=== PATIENT | female | born 1975 | race Caucasian/White ===

== ENCOUNTER → 2024-05-13 09:00 | Outpatient (REF) | payer BC, SELFPAY | LOC: HWRAD 09:00 | PROVIDERS: ATTENDING PHYSICIAN Internal Medicine Critical Care Medicine; FAMILY PHYSICIAN Physician Assistant Medical | DX: R05.3 Chronic cough (principal); R05.8 Other specified cough | CPT/HCPCS: 71250 ==

== ENCOUNTER 2024-11-05 13:07 | Emergency (ER) | payer BC, SELFPAY ==
[2024-11-05 13:17] VITALS: BP 142/91
[2024-11-05 13:45] LABS: % Basophils 0.2 % (0-2); % Eosinophils 0.4 % (0-6); % Immature Granulocytes 0.5 % (0-0.5); % Lymphocytes 19.1 % (20.5-51.1); % Monocytes 8.2 % (1.7-9.3); % Neutrophils 71.6 % (42.2-75.2); Absolute Eosinophils 0.1 10^3/uL (0-0.7); Absolute Immature Granulocytes 0.1 10^3/uL (0-0.05); Absolute Lymphocytes 2.9 10^3/uL (1.2-3.4); Absolute Monocytes 1.2 10^3/uL (0.1-0.6); Absolute Neutrophils 10.8 10^3/uL (1.4-6.5); Hematocrit 42.6 % (37.0-47.0); Mean Corp Hgb Conc. 32.9 g/dL (33.0-37.0); Mean Corpuscular Hgb 28.7 pg (27.0-31.0); Mean Corpuscular Volume 87.3 fL (81.0-99.0); Mean Platelet Volume 9.2 fL (7.4-10.4); Nucleated Red Blood Cells % 0 %; Platelet Count 331 10^3/uL (130-400); Red Blood Cell Count 4.88 10^6/uL (4.20-5.40); White Blood Cell Count 15.1 10^3/uL (4.8-10.8)
[2024-11-05 13:48] LABS: Urine Albumin 1+ (Neg - Trace); Urine Bilirubin Negative (Negative); Urine Character Clear (Clear); Urine Color Yellow; Urine Glucose Negative (Negative); Urine Ketone 1+ (Negative); Urine Leukocyte Negative (Negative); Urine Nitrite Negative (Negative); Urine Occult Blood 1+ (Negative); Urine Specific Gravity 1.025 (<1.030); Urine Urobilinogen Negative (Neg - 1+)
[2024-11-05 14:01] LABS: ALT (SGPT) 31 U/L (0-35); AST (SGOT) 25 U/L (14-36); Albumin 4.5 g/dl (3.5-5.0); Alkaline Phosphatase 87 U/L (38-126); Blood Urea Nitrogen 12 mg/dl (7-17); Calcium 10.6 mg/dl (8.4-10.2); Carbon Dioxide 27 mmol/L (22-30); Chloride 101 mmol/L (98-107); Glucose 98 mg/dl (70-99); Potassium 4.8 mmol/L (3.5-5.1); Sodium 139 mmol/L (135-145); Total Bilirubin 0.7 mg/dl (0.2-1.3); Total Protein 7.8 g/dl (6.3-8.2); eGFR > 60.00
[2024-11-05 14:37] LABS: Urine Squamous Cell >30 /LPF (Few)
[2024-11-05 14:38] LABS: Urine Bacteria Many (Negative); Urine Mucus Moderate; Urine Red Blood Cell 0-2 /HPF (0-2)
--- NOTE | 2024-11-05 15:04 | ED.GENMED ---
History of Present Illness
General
Chief Complaint: Abdominal Pain
Time Seen by Provider: 11/05/24 14:56
History of Present Illness
History of Present Illness:
49 yo female w/ no significant past medical hx presents for evaluation of LLQ pain beginning suddenly last night. Worse with movement and breathing. No fevers, chills, sweats, N/V/D. No LUTS or radiating pain. Prior abd surgeries: C section
Review of Systems
Review of Systems
Allergies reviewed?: Yes
All Other Systems: ROS reviewed and negative except as documented in HPI and ROS
Phy Exam
Physical Exam
Physical Exam:
GEN: Well appearing, NAD, WDWN
HEENT: Oral mucosa moist, no scleral icterus
Cardiac: Tachycardic, regular
Lung: No respiratory distress, no tachypnea
Abd: Soft, marked LLQ tenderness w/ localized peritoneal signs
MSK: No gross deformity or injuries
Skin: Good color, no pallor or jaundice, no rashes
Neuro: AO x3, moves all extremities freely
Psych: Calm, cooperative
Course
Orders/Labs/Results
Orders:
Orders
11/05/24 13:26
Complete Blood Count/With Diff Urgent
Comprehensive Metabolic Panel Urgent
Urinalysis Reflex To Culture Urgent
Date Specimen was Collected: 11/05/24
Time Specimen was Collected: 13:21
Urine Microscopic Reflex Cult Urgent
Urine Culture Urgent
DAVID Source: U
Specimen Description:
Date Specimen was Collected: 11/05/24
Time Specimen was Collected: 13:21
11/05/24 15:03
CT Abd/Pel (IV only)-DH only Urgent
Comment:
Reason For Exam: LLQ pain
11/05/24 17:33
Ketorolac [Toradol] 15 mg IV NOW STA
Piperacillin/Tazo 3.375 Gram [Zosyn] 3.375 gram in 50 ml IV NOW
Abnormal Lab Results
11/05/24
13:26
WBC 15.1 H 10^3/uL
(4.8-10.8)
MCHC 32.9 L g/dL
(33.0-37.0)
Abs Immat Gran (auto) 0.1 H 10^3/uL
(0-0.05)
Absolute Neuts (auto) 10.8 H 10^3/uL
(1.4-6.5)
Absolute Monos (auto) 1.2 H 10^3/uL
(0.1-0.6)
Lymphocytes % 19.1 L %
(20.5-51.1)
Calcium 10.6 H mg/dl
(8.4-10.2)
Urine Ketones 1+ A
(Negative)
Ur Occult Blood Reflex 1+ A
(Negative)
Urine Bacteria (Reflex) Many A
(Negative)
Urine Albumin (Reflex) 1+ A
(Neg - Trace)
11/05/24 13:26
11/05/24 13:26
Vital Signs
Initial and Last Documented VS:
Initial Vital Signs
Temp Pulse BP Pulse Ox
98.5 F 119 142/91 99
11/05/24 13:17 11/05/24 13:17 11/05/24 13:17 11/05/24 13:17
Last Documented Vital Signs
Temp Pulse Resp BP Pulse Ox
98.5 F 90 18 115/88 99
11/05/24 13:17 11/05/24 17:44 11/05/24 17:44 11/05/24 17:44 11/05/24 17:44
MDM/Problems Addressed
MDM/Problems Addressed:
CT shows acute diverticulitis. She was treated with IV antibiotics and NSAIDs with moderate improvement in symptoms. She is suitable for outpatient management. Educated importance of clear liquid diet transitioning to a low residue diet as well
as antibiotics.
*Critical Care Note
Total Time (30-74mins, 75-104mins- exclusive of procedures): Not Applicable
ED Attending Note
-
Portions of this chart may have been created with voice recognition software.� Occasional wrong word or��sound alike� substitutions may have occurred due to the inherent limitations of voice recognition software.
Discharge Plan
Departure
Patient Disposition: Home (Routine Discharge)
Date of Disposition: 11/05/24
Time of Disposition: 19:05
Patient with high blood pressure during this ER visit?: No
Discharge Problem:
Diverticulitis
Instructions: Diverticulitis - Discharge instructions, Low-fiber diet, Clear Liquid Diet
Prescriptions:
New
amoxicillin-pot clavulanate 875-125 mg tablet
1 tab PO BID Qty: 20 0RF
No Action
Theragen Tablet
1 tab PO DAILY
levothyroxine 88 mcg Tablet
88 mcg PO DAILY
Referrals:
Sultana Salmeron PA [Family Provider] -
Interventions
Interventions:
*Risk Screen - Suicide Last Done: 11/05/24 13:17
*General Assessment Last Done: 11/05/24 15:10
*Neglect/Abuse Screening Last Done: 11/05/24 15:10
*ED- Fall Risk Assessment Last Done: 11/05/24 15:10
*ED COVID-19 Vaccine History Last Done: 11/05/24 15:10
*Nursing Disposition Last Done: 11/05/24 19:19
TI-Piqurv-Zekasygavs Assessment Last Done: 11/05/24 15:10
Discharge Date and Time
Discharge Date/Time: 11/05/24 19:19
Print Language: SWISS
[2024-11-05] MEDS: ZOSYN 50 IV (17:41)
[2024-11-05] MEDS: TORADOL 15 MG IV (17:41)
[2024-11-05 17:44] VITALS: BP 115/88
== END 2024-11-05 19:19 | disposition home or self-care (01) ==
LOC: EMR 13:07
PROVIDERS: Student in an Organized Health Care Education/Training Program; EMERGENCY PHYSICIAN Emergency Medicine; FAMILY PHYSICIAN Physician Assistant Medical
DX: K57.32 Diverticulitis of large intestine without perforation or abscess without bleeding (principal)
CPT/HCPCS: 96365; 96375; 99284; 74177; 80053; 81003; 81015; 85025; 87086; Q9967

== ENCOUNTER 2025-01-21 06:22 | Day surgery (SDC) | payer BC, SELFPAY | END 2025-01-21 15:51 | disposition home or self-care (01) | LOC: GI 06:22 | PROVIDERS: ATTENDING PHYSICIAN Internal Medicine Gastroenterology | DX: Z12.11 Encounter for screening for malignant neoplasm of colon (principal); K64.8 Other hemorrhoids; K57.30 Diverticulosis of large intestine without perforation or abscess without bleeding; D12.3 Benign neoplasm of transverse colon; D12.2 Benign neoplasm of ascending colon; D12.5 Benign neoplasm of sigmoid colon | CPT/HCPCS: 45385; 88305 ==